=== PATIENT | female | born 1935 | race African-American/Black ===

== ENCOUNTER 2019-12-04 01:43 | Inpatient (IN) ==
[2019-12-04] MEDS ORDERED: ONDANSETRON INJ 2 MG/ML 2 ML VIAL IV PRN (09:51)
[2019-12-04] MEDS ORDERED: MAGNESIUM HYDROXIDE SUSP 30 ML UDC PO PRN (09:51)
[2019-12-04] MEDS ORDERED: POLYETHYLENE (MIRALAX) 17 GM PACK PO PRN (09:51)
[2019-12-04] MEDS ORDERED: ALUMINUM/MAGNESIUM SUSP 30 ML UDC PO PRN (09:51)
--- OUTSIDE RECORDS SUMMARY | 2019-12-04 10:00 | External Medical Summary | Continuity of Care Document ---
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 10) Allergies and Adverse Reactions Aspirin TABS (Allergy) Ibuprofen TABS (Allergy) Medications Aleve 220 MG Oral Capsule , M.D. Start: 2013 Refills: 0 Ferrous Sulfate 325 (65 Fe) MG Oral Tablet , M.D. Refills: 0 HYDROcodone-Acetaminophen 5-325 MG Oral Tablet; 1-2 tablets q4-6h , M.D. Refills: 0 Lisinopril 5 MG Oral Tablet , M.D. Refills: 0 CeleBREX 200 MG Oral Capsule; Take 1 capsule twice daily , M .D. Refills: 0 Ciprofloxacin HCl - 750 MG Oral Tablet; TAKE (1) TABLET TWIC E A DAY , M.D. Refills: 0 Enoxaparin Sodium 100 MG/ML Subcutaneous Solution; INJECT 1 ML , M.D. Refills: 0 Procedures History of Knee Replacement Status: Comp leted History of Total Abdominal Hysterectomy Status: Completed History of Radical Mastectomy Left Breast Status: Completed Immunizations Immunizations not documented Family History Mother Family history of Diabetes Mellitus (V18.0) Status: Active Brother Family history of Diabetes Mellitus (V18.0) Status: Active Family history of Diabetes Mellitus (V18.0) Status: Active Social History - Smoking Status Never smoked tobacco Plan of Treatment Planned Observations Planned Goals not documented Results No Known Results Results not documented
[2019-12-04] MEDS ORDERED: TRAMADOL HCL 50 MG TABLET PO PRN (10:45)
[2019-12-04 10:47] LABS: Basophils # (auto) 0.02 K/uL (0-0.2); Basophils % (auto) 0.1 %; Eosinophils # (auto) 0.05 K/uL (0-0.5); Eosinophils % (auto) 0.3 %; Hematocrit (blood only) 33.3 % (37-47); Hemoglobin 11.2 g/dL (12.0-16.0); Immature Granulocytes % (auto) 0.6 %; Lymphocytes # (auto) 1.29 K/uL (1.2-3.4); Lymphocytes % (auto) 7.9 %; Mean Corpuscular Hemoglobin 26.7 pg (25-34); Mean Corpuscular Hgb Conc 33.6 g/dL (32-36); Mean Corpuscular Volume 79.3 fL (80-100); Mean Platelet Volume 9.5 fL (7.4-10.4); Monocytes % (auto) 8.6 %; Neutrophils # (auto) 13.43 K/uL (1.4-6.5); Neutrophils % (auto) 82.5 %; Platelet Count 313 K/uL (130-400); RDW Coefficient of Variation 15.8 % (11.5-14.5); White Blood Count 16.29 K/uL (4.8-10.8)
[2019-12-04] MEDS ORDERED: CEFEPIME CONSULT ACTIVE PRN (10:51)
[2019-12-04] MEDS ORDERED: VANCOMYCIN CONSULT ACTIVE PRN (10:51)
--- NOTE | 2019-12-04 10:52 | History & Physical Report ---
Date of Service December 04, 2019 Assessment & Plan (1) Septic arthritis of knee, right: This is a 84-year-old female who has significant past medical history of hypertension, vitamin D deficiency, PAD, history of breast cancer status post left mastectomy 1996, history of DVT who presents as a direct admission from [facility] due to concern for right knee pain and septic arthritis. Pt presented to OSH with worsened pain, redness and warmth to R knee after sustaining fall [address] LE revealed large fluid and air anteriorly concerning for possible infectious process. Patient had significant leukocytosis and elevated CRP. Due to concern for septic arthritis she underwent arthrocentesis, specimen was thick, dempsey, and purulent. She received IV vancomycin and cefepime. Accepted by [facility] Dr. Antonio and transferred. Pt admitted to med/surg continue IV vancomycin and cefepime blood cultures drawn, arthrocentesis cultures pending at OSH ([facility]) consult orthopedics Dr. Antonio NWB To RLE ICE TID Tramadol 50mg q4h prn pain, APAP prn NPO after midnight covid 19 test ordered due to possible procedure EKG done - revealed NSR, LAFB, unchanged from prior ecg 10/2018. Follows [facility]. Underwent Lexiscan stress test 10/2018 negative for inducible ischemia. (2) HTN (hypertension): Blood pressure elevated She did not take her a.m. medications Resume hydralazine and diltiazem Monitor (3) Hypokalemia: pt on daily replacement 40meq KCL x 1 now repeat bmp in a.m. (4) Anemia: H&H 11.2 and 33.3 No signs or symptoms of bleeding Low MCV Obtain iron studies in a.m. (5) PVD (peripheral vascular disease): per pt hx of stent to RLE due to non healing wound on dorsal aspect R foot Dr. Jensen Unable to locate records, will need to obtain Recently had been on ASA, plavix and statin Now only on ASA (6) DVT prophylaxis: SCD/TEDS for now possible surgical procedure tomorrow, reassess daily to initiate chemical prophylaxis due to pt with hx of dvt Dispositon: admit to med surg Follow up: PCP Suzette Vinson PA-C upon discharge Pt was seen and examined in collaboration with Dr. Joelle, please see addendum Admission and Anticipated Discharge Date Admission Date: December 04, 2019 History of Present Illness Chief Complaint: R knee pain x 1 week. Primary Care Provider: Suzette Vinson PA-C This is a 84-year-old female who has significant past medical history of hypertension, vitamin D deficiency, PAD, history of breast cancer status post left mastectomy 1996, history of DVT who presents as a direct admission from [facility] due to concern for right knee pain and septic arthritis. Of significance patient has had 2 prior right total knee arthroplasty. Initially had surgery done by [facility] [place] [place], Dr. Méndez. She also required a revision and patellectomy 10/2018 at [facility]. Unfortunately patient sustained a fall approximately 1 week ago in which she fell on her, "bottom." She did not hit her knee directly but feels she may have twisted it somehow causing significant pain. Pain continued to persist and therefore she was seen and evaluated at ED in [place] on 11/27. She was started on Keflex 500 mg 4 times daily for concern for infection. Pain continued to persist and she continued to have worsening difficulty with ambulation. Due to worsening symptoms she returned to ED last evening. During further evaluation lab work revealed leukocytosis 15.5k, elevated CRP 20.4 and concern for right knee septic arthritis. She did undergo a CT of the right lower extremity which revealed a large fluid and air anteriorly concerning for possible infectious process. There is otherwise no bony abnormality and no hardware failure. She did undergo arthrocentesis of the right knee which was sent for culture. She also had blood cultures drawn. She was accepted by [facility] [place] Dr. Antonio for transfer. At rest currently she feels well. She currently denies any pain. Pain worsened significantly with any type of mobility. She denies any recent fever, chills, sweats, lightheadedness, dizziness, chest pain, shortness of breath, cough, nausea, vomiting, abdominal pain, change in her bowel or urinary habits. She denies any loss of taste or smell. No known contact with +covid 19 pt. Of significance patient states that she did have a wound to dorsal aspect of right foot. She required stent placement by Dr. eJnsen 05/2019. She was on ASA, Plavix and statin therapy and most recently was reduced to ASA alone. I do not have records indicating this in our system. Will have to obtain. Allergies Allergy/AdvReac Type Severity Reaction Status Date / Time aspirin AdvReac Intermediate previous Verified 10/28/13 09:39 ulcer ibuprofen AdvReac Intermediate hx of Verified 10/28/13 09:39 gastric ulcers Home Medications Home Medications Medication Instructions Recorded Confirmed Type aspirin 81 mg PO DAILY 12/04/19 12/04/19 History cephalexin [Keflex] 500 mg PO QID 12/04/19 12/04/19 History diltiazem HCl 120 mg PO DAILY 12/04/19 12/04/19 History ergocalciferol (vitamin D2) 1,250 mcg PO WK 12/04/19 12/04/19 History hydralazine 10 mg PO Q12H 12/04/19 12/04/19 History potassium chloride 20 meq PO DAILY 12/04/19 12/04/19 History Past Med/Surg History Medical History (Updated 12/04/19 @ 11:55 by Gracia Alcocer PA-C) History of breast cancer History of DVT of lower extremity HTN (hypertension) PVD (peripheral vascular disease) Surgical History (Updated 12/04/19 @ 11:56 by Gracia Alcocer PA-C) H/O right knee surgery hx of patellect[place] by Dr. Fredy Lagunas[place] [facility] [place] History of angioplasty of peripheral vessel reported per pt 05/[address] Jensen on ASA History of left mastectomy History of total left knee replacement (TKR) History of total right knee replacement (TKR) Status post appendectomy Family History (Updated 12/04/19 @ 11:39 by Gracia Alcocer PA-C) Brother Diabetes Denies family history of Coronary heart disease Cancer Stroke Social History (Updated 12/04/19 @ 11:39 by Gracia Alcocer PA-C) Smoking Status: Former smoker Second Hand Exposure: No; Do You Dip or Chew Tobacco: No; Tobacco Cessation Education Requested by Patient: No Hx Alcohol Use: No Hx Substance Use: No Preferred Language: Occitan Communication Ability: Effective Electronic Assembly Required: No Beliefs That Will Affect Care: Mandaen Mandaen Beliefs: jehovah witness Current Living Situation: Family Current Living Situation Comment: Lives with daughter Other Information That Helps Us Care for You: No Feels Safe at Home: Yes Safety Concerns: Feels Safe At This Time Review of Systems Review of Systems: All systems reviewed & are unremarkable except as noted in HPI & below Physical Exam Physical Exam: Constitutional: WD/WN, -Somali, female, vitals as above, NAD, sitting up in bed, pleasant, conversing easily Head: Normocephalic, Atraumatic Eyes: PERRL, conjunctivae normal, anicteric sclerae ENMT: external ear and nose normal, oropharynx normal Neck: trachea midline, no thyromegaly normal visual inspection Respiratory: normal respiratory effort, lungs clear to auscultation, no wheeze, rales, rhonchi. Normal insp/exp effort, no accessory muscle use Cardiovascular: RRR, no ectopy, no murmur, no edema, negative Homans. vessels: no JVD or carotid bruit Chest: normal inspection of chest Abdomen: normal bowel sounds, soft, nontender, no hepatosplenomegaly Musculoskeletal: no cyanosis or clubbing, right knee swelling/effusion, warmth, pain to palpation. Active range of motion to bilateral upper extremity and left lower extremity. Bilateral pedal pulses and PT pulses +2 and equal. She does have scar to dorsal aspect of right foot which is where a prior wound had healed. Left TKA scar noted. Skin: no rashes, warm and dry normal turgor Neurologic: PERRL, EOMI, accommodation nl, no face palsy, no dysarthria CN's II-XI intact bilaterally and moves all extremities Psychiatric: A+Ox3, euthymic affect Lymphatic: no cervical or axillary lymphadenopathy : deferred Results & Data Results & Data ([facility]) Vital Signs (Past 12 Hours) Vital Signs Temp Pulse Resp BP Pulse Ox 12/04/19 10:37 36.9 C 74 16 166/79 H 100 Laboratory Results Short CBC 12/04/19 Range/Units 10:23 WBC 16.29 H (4.8-10.8) K/uL Hgb 11.2 L (12.0-16.0) g/dL Hct 33.3 L (37-47) % Plt Count 313 (130-400) K/uL BMP 12/04/19 10:23 Sodium 136 Potassium 3.2 L Chloride 105 Carbon Dioxide 25 BUN 12 Creatinine 0.70 Glucose 114 H Calcium 8.7 Liver Function 08/15/20 Range/Units 10:23 Total Bilirubin 0.7 (0.2-1) mg/dl AST 27 (15-37) U/L ALT 36 (12-78) U/L Alkaline Phosphatase 112 (45-117) U/L Albumin 2.4 L (3.4-5.0) gm/dl Diagnostic Findings CXR: no acute process, cardiomegaly ECG Rate (beats per minute): 71 Rhythm: normal sinus Findings: + LAFB Comparison ECG Date: from (10/2018) Change: no significant change Code Status & VTE Plan Code Status Full Code VTE Prophylaxis Plan VTE Prophylaxis will be ordered: Yes Supervising Physician Co-Signing Physician Notes Pt was seen and examined. Agreed with Gracia HENRY exam, assessment and plan. 84-year-old female who has significant past medical history of hypertension, vitamin D deficiency, PAD, history of breast cancer status post left mastectomy 1996, history of DVT who presents as a direct admission from [facility] due to concern for right knee pain and septic arthritis. Pt said that about 1 week ago, she fell. She said that she was seen at [facility] and Keflex was given. Pt said that pain and swelling got worst and went to [facility] ER to get eval. CT was done showed large fluid and air anteriorly concerning for possible infectious process. Elevated leukocytosis, ESR and elevated CRP. Due to concern for septic arthritis she had arthrocentesis done at [facility]. Dr. Antonio accepted the patient and she was transferred to [facility]. Pt said that her pain is controlled. She said that the right knee is tender when she tries to move it or touch it. Her right knee is swollen. Will continue cefepime and Vanco for now. Blood cx pending. After pt was evaluated by ortho Dr. Antonio, he recommended to transfer to a tertiary care facility since pt will require extensive surgery. Family and patient preferred to transfer to [facility] because family did not feel pt was getting appropriate care during her last surgery in [place]. Called the transfer service at [facility] and discussed case with the hospitalist Dr. Soto and Orthopedic surgeon Dr. Stephen that accepted the patient. Since pt is stable with normal vitals afebrile, the transfer service said that the patient will need insurance auth before transferring. Unable to obtain prior insurance auth since her insurance closed for the weekend. I called the transfer service back to notify them that we cannot get prior insurance auth. The Transfer service said that if patient becomes unstable to call that they can arrange for the transfer. Transfer papers completed and family was notified. Nurse will call family when there is a bed available for transfer. MD Joelle
[2019-12-04 11:13] LABS: Albumin Level 2.4 gm/dl (3.4-5.0); BUN Creatinine Ratio 17.4 (10-20); Calcium 8.7 mg/dl (8.5-10.1); Creatinine Clr Calc Pharmacy 63.8 ml/min; Est GFR (African American) 91.6; INR 1.1 (0.9-1.1); Magnesium 1.9 mg/dl (1.8-2.4); Partial Thromboplastin Ratio 1.1; Partial Thromboplastin Time 30.7 Seconds (21.0-31.0); Potassium 3.2 mmol/L (3.5-5.1); Prothrombin Time 11.4 Seconds (9.0-12.0)
[2019-12-04 11:16] LABS: Albumin Globulin Ratio 0.5 (0.9-2); Bilirubin,Total 0.7 mg/dl (0.2-1); C Reactive Protein 18.4 mg/dl (0-0.29); Globulin 5.3 gm/dl (2.5-4.0); Total Protein 7.7 gm/dl (6.4-8.2)
--- NOTE | 2019-12-04 11:31 | XRay Report ---
XR chest 1V portable CLINICAL HISTORY: Admission chest x-ray COMPARISON STUDY: 08/04/2013 FINDINGS: The heart is enlarged. There is aortic tortuosity. There is no failure. There is no lobar c onsolidation. There are no pleural effusions.[ IMPRESSION: Mild cardiomegaly. No acute findings. ACT 112: Negative or not required by law. Electronically signed by: Casey Daniels M.D. 12/04/2019 11:29 AM
[2019-12-04] MEDS ORDERED: POTASSIUM CHLORIDE 20 MEQ TABCR PO STA (11:59)
--- NOTE | 2019-12-04 12:13 | Pharmacy Report ---
Pharmacy Abx Initial Consult - Date of Service December 04, 2019 - Pharmacy Dosing Scope Date of Consult: 12/04/19 Consultation requested by: Gracia Alcocer Pharmacy is consulted to initiate Vancomycin and Cefepime IV dosing therapy, order appropriate labs and adjust drug dose/frequency. - Subjective The patient is a 84 year old F admitted on 12/04/19 09:57. - Objective Height: 5 ft 5 in Weight: 86.4 kg Vital Signs (Past 12hrs): Vital Signs Temp Pulse Resp BP Pulse Ox 12/04/19 10:37 36.9 C 74 16 166/79 H 100 Lab Results (24hrs): Laboratory Tests (24 Hours) 12/04/19 12/04/19 12/04/19 10:23 10:23 10:23 WBC 16.29 H Neut # (Auto) 13.43 H ESR > 90 H Creatinine 0.70 Est Cr Clr Drug Dosing 63.8 C-Reactive Protein 18.40 H Micro Results: 12/04/19 10:49 Aerobic Blood Culture - Pending Blood Anaerobic Blood Culture - Pending 12/04/19 10:23 Aerobic Blood Culture - Pending Blood Anaerobic Blood Culture - Pending - Risk Factors for Resistance * Antimicrobial use within the last 90 days: Keflex 500mg qid starting 11/27 - Assessment & Plan Assessment 84 year old F admitted to [facility] from [facility] for septic arthritis of R knee. * Pt received vancomycin 1200mg in the ER at [facility] around 2am today, as well as cefepime 2gm around midnight. * Blood cultures pending * Renal function appears to be at baseline Plan Vancomycin and cefepime for treatment of septic arthritis Vancomycin IV * Patient meets criteria for vancomycin AUC dosing nomogram * AUC/KHURRAM is the preferred PK/PD target for vancomycin * Target AUC/KHURRAM = 400-600 * AUC guided dosing is effective and associated with decreased risk of nephrotoxicity * Estimated PK Parameters: Vd 0.6 L/kg, Dipak 0.057 hr-1, t1/2 12 hr * Loading dose: 1200 mg (14 mg/kg) in the ED at [facility] * Maintenance dose: 1250 mg IV (14.5 mg/kg) every 12 hours * Goal trough level for septic arthritis : 15 to 20 mcg/mL * Trough level ordered for 12/06/19 @1130 (prior to 5th maintenance dose) Cefepime * 2gm q8h for sepsis dosing Pharmacy will continue to follow and will adjust dose/frequency as necessary. Thank you.
[2019-12-04] MEDS: dilTIAZem HCL 120 MG CAPCR PO SCH (12:21)
[2019-12-04] MEDS: HydrALAZINE 10 MG TAB PO SCH ×2 (12:21→20:03)
[2019-12-04] MEDS: ASPIRIN 81 MG ECTAB PO SCH (12:21)
[2019-12-04] MEDS: VANCOMYCIN HCL 1,250 MG in SODIUM CHLORIDE 0.9% 250 ML IV SCH ×2 (12:27→23:51)
[2019-12-04] MEDS: CEFEPIME 2,000 MG in SYRINGE 7.5 ML IV SCH ×2 (12:27→20:03)
--- NOTE | 2019-12-04 19:41 | Consultation Report ---
DATE OF CONSULTATION: 12/04/2019 HISTORY OF PRESENT ILLNESS: This is an 84-year-old female seen at the request of Dr. Ricketts after she was admitted to the hospitalist service for septic right total knee arthroplasty. This patient is well known to the Orthopedic Service and she had a previous right total knee arthroplasty performed by Dr. Méndez in 06/2013. Subsequently had a wound dehiscence distally, had a second washout with polyethylene exchange and retained the components until later in 2013 in October at which point she had to have an excisional arthroplasty with implantation of cement spacers and placed on IV antibiotics. She then had a revision to a final total condylar arthroplasty with long stems proximal and distal from which she did fairly well for the next several years. Unfortunately, she had some right anterior knee pain. She was then seen by Jose Lagunas in [place] and she had a patellectomy of the right knee in 2018. She had some improvement in her symptoms with reduction in pain. She was doing fairly well; however, she had some sort of ischemic ulceration on her right foot. [facility] [place] and due to vascular insufficiency, had a stent performed by Dr. Jensen. The ulceration healed. However, within approximately a week prior to admission, the patient had a fall, fell on her buttocks, without any broken tissue, but then over the next several days, then developed redness, pain and swelling in her right knee. She was then seen in the Emergency Department, placed on Keflex and then had continued pain that was not resolving. She was then seen last evening in the Emergency Department at [facility]. She was evaluated, noted to have a large effusion of her right knee. She had a CT scan which demonstrated air fluid levels in the right knee, had an aspiration which appeared to have a dempsey yellow aspirate which was sent for culture, elevated white count at 15,000 and elevated sed rate over 130. The patient was then sent to [facility] for definitive management and care. PAST MEDICAL HISTORY: Hypertension, hypokalemia, anemia, peripheral vascular disease, degenerative arthritis, previous septic total knee arthroplasty on the right, vitamin D deficiency, history of breast cancer status post left mastectomy. PAST SURGICAL HISTORY: Multiple surgeries of the right knee as detailed above, left total knee arthroplasty, angioplasty peripheral vessels on 05/[address] Milan, appendectomy. ALLERGIES: TO ASPIRIN WITH STOMACH ULCER; IBUPROFEN, HISTORY OF GASTRIC ULCERS. MEDICATIONS: Please note the medical record. Medications, of note, Keflex 500 mg p.o. q.i.d. PAST SOCIAL HISTORY: She is a former smoker. She has not smoked in many years. Denies any current tobacco use. No alcohol, no drug use. She lives with her daughters. She is retired. She is Pentecostal. PHYSICAL EXAMINATION: Examination of the patient demonstrates an 84-year-old female lying supine in hospital room bed. She is alert and oriented x3. Speech clear and fluent. Affect is appropriate. She is a very good historian. Examination of the right knee demonstrates a large effusion. There is thinning of the anterior tissue with what appears to be subepidermal purulence. It is warm to touch. She has pain and limitation in range of motion of the right knee. Healed ulceration on the plantar aspect of right foot. She has 1/4 pulses, dorsalis pedis, posterior pulses on the right compared to the left. The CT scan reviewed demonstrating air fluid levels anteriorly. No fractures, long stem total knee arthroplasty with stems in the femur and in the tibia. Appears to be stable. Significant amount of effusion. LABORATORIES: Reviewed. IMPRESSION: Septic right total knee arthroplasty, multiple medical comorbidities. RECOMMENDATION: The patient will have to undergo significant surgery one way or another including but not limited to: excisional arthroplasty with antibiotic spacer, excisional arthroplasty with knee fusion, versus extensive irrigation and debridement with polyethylene exchange with chronic suppression antibiotics, versus above knee amputation. She is not a good candidate for excisional arthroplasty and reimplantation. We will discuss with my colleagues and make further recommendations. She will likely need to transfer to a tertiary care facility particularly if a knee fusion is required. In the meantime, n.p.o. after midnight for possible surgery in the a.m. Maintain partial weightbearing for transfer with use of a walker, limitation in weightbearing within the room only. Continue IV antibiotics. Thank you for the opportunity to consult in care of this patient. RUSSELL
--- NOTE | 2019-12-04 20:00 | Discharge Summary ---
Date of Service December 05, 2019 Admission HPI Per Admitting Provider This is a 84-year-old female who has significant past medical history of hypertension, vitamin D deficiency, PAD, history of breast cancer status post left mastectomy 1996, history of DVT who presents as a direct admission from [facility] due to concern for right knee pain and septic arthritis. Of significance patient has had 2 prior right total knee arthroplasty. Initially had surgery done by [facility], Dr. Méndez. She also required a revision and patellectomy 10/2018 at [facility]. Unfortunately patient sustained a fall approximately 1 week ago in which she fell on her, "bottom." She did not hit her knee directly but feels she may have twisted it somehow causing significant pain. Pain continued to persist and therefore she was seen and evaluated at ED in [place] on 11/27. She was started on Keflex 500 mg 4 times daily for concern for infection. Pain continued to persist and she continued to have worsening difficulty with ambulation. Due to worsening symptoms she returned to ED last evening. During further evaluation lab work revealed leukocytosis 15.5k, elevated CRP 20.4 and concern for right knee septic arthritis. She did undergo a CT of the right lower extremity which revealed a large fluid and air anteriorly concerning for possible infectious process. There is otherwise no bony abnormality and no hardware failure. She did undergo arthrocentesis of the right knee which was sent for culture. She also had blood cultures drawn. She was accepted by [facility] Dr. Antonio for transfer. At rest currently she feels well. She currently denies any pain. Pain worsened significantly with any type of mobility. She denies any recent fever, chills, sweats, lightheadedness, dizziness, chest pain, shortness of breath, cough, nausea, vomiting, abdominal pain, change in her bowel or urinary habits. She denies any loss of taste or smell. No known contact with +covid 19 pt. Of significance patient states that she did have a wound to dorsal aspect of right foot. She required stent placement by Dr. Jensen 05/2019. She was on ASA, Plavix and statin therapy and most recently was reduced to ASA alone. I do not have records indicating this in our system. Will have to obtain. Admission Exam Per Admitting Provider Constitutional: WD/WN, -Norwegian, female, vitals as above, NAD, sitting up in bed, pleasant, conversing easily Head: Normocephalic, Atraumatic Eyes: PERRL, conjunctivae normal, anicteric sclerae ENMT: external ear and nose normal, oropharynx normal Neck: trachea midline, no thyromegaly normal visual inspection Respiratory: normal respiratory effort, lungs clear to auscultation, no wheeze, rales, rhonchi. Normal insp/exp effort, no accessory muscle use Cardiovascular: RRR, no ectopy, no murmur, no edema, negative Homans. vessels: no JVD or carotid bruit Chest: normal inspection of chest Abdomen: normal bowel sounds, soft, nontender, no hepatosplenomegaly Musculoskeletal: no cyanosis or clubbing, right knee swelling/effusion, warmth, pain to palpation. Active range of motion to bilateral upper extremity and left lower extremity. Bilateral pedal pulses and PT pulses +2 and equal. She does have scar to dorsal aspect of right foot which is where a prior wound had healed. Left TKA scar noted. Skin: no rashes, warm and dry normal turgor Neurologic: PERRL, EOMI, accommodation nl, no face palsy, no dysarthria CN's II-XI intact bilaterally and moves all extremities Psychiatric: A+Ox3, euthymic affect Lymphatic: no cervical or axillary lymphadenopathy : deferred Principal Diagnosis Septic arthritis of right knee Hypertension Hypokalemia PVD Discharge Exam Constitutional: WD/WN, -Norwegian, female, vitals as above, NAD, sitting up in bed, pleasant, conversing easily Head: Normocephalic, Atraumatic Eyes: PERRL, conjunctivae normal, anicteric sclerae ENMT: external ear and nose normal, oropharynx normal Neck: trachea midline, no thyromegaly normal visual inspection Respiratory: normal respiratory effort, lungs clear to auscultation, no wheeze, rales, rhonchi. Normal insp/exp effort, no accessory muscle use Cardiovascular: RRR, no ectopy, no murmur, no edema, negative Homans. vessels: no JVD or carotid bruit Chest: normal inspection of chest Abdomen: normal bowel sounds, soft, nontender, no hepatosplenomegaly Musculoskeletal: no cyanosis or clubbing, right knee swelling/effusion, warmth, pain to palpation. Active range of motion to bilateral upper extremity and left lower extremity. Bilateral pedal pulses and PT pulses +2 and equal. She does have scar to dorsal aspect of right foot which is where a prior wound had healed. Left TKA scar noted. Skin: no rashes, warm and dry normal turgor Neurologic: PERRL, EOMI, accommodation nl, no face palsy, no dysarthria CN's II-XI intact bilaterally and moves all extremities Psychiatric: A+Ox3, euthymic affect Lymphatic: no cervical or axillary lymphadenopathy : deferred Discharge Data Allergies Allergy/AdvReac Type Severity Reaction Status Date / Time aspirin AdvReac Intermediate previous Verified 10/28/13 09:39 ulcer ibuprofen AdvReac Intermediate hx of Verified 10/28/13 09:39 gastric ulcers Consultations Orthopedics Consultation: DATE OF CONSULTATION: 12/04/2019 HISTORY OF PRESENT ILLNESS: This is an 84-year-old female seen at the request of Dr. Ricketts after she was admitted to the hospitalist service for septic right total knee arthroplasty. This patient is well known to the Orthopedic Service and she had a previous right total knee arthroplasty performed by Dr. Méndez in 06/2013. Subsequently had a wound dehiscence distally, had a second washout with polyethylene exchange and retained the components until later in 2013 in October at which point she had to have an excisional arthroplasty with implantation of cement spacers and placed on IV antibiotics. She then had a revision to a final total condylar arthroplasty with long stems proximal and distal from which she did fairly well for the next several years. Unfortunately, she had some right anterior knee pain. She was then seen by Jose Lagunas in [place] and she had a patellectomy of the right knee. She had some improvement in her symptoms with reduction in pain. She is doing fairly well; however, she had some sort of ischemic ulceration on her right foot. [facility] [place] and due to vascular insufficiency, had a stent performed by Dr. Milan. The ulceration healed. However, within approximately a week prior to admission, the patient had a fall, fell on her posterior, without any broken tissue, but then over the next several days, then developed redness, pain and swelling in her right knee. She was then seen in the Emergency Department, placed on Keflex and then had continued pain that was not resolving. She was then seen last evening in the Emergency Department at [facility]. She was evaluated, noted to have a large effusion of her right knee. She had a CT scan which demonstrated air fluid levels in the right knee, had an aspiration which appeared to have a dempsey yellow aspirate which was sent for culture, elevated white count at 15,000 and elevated sed rate over 130. The patient was then sent to [facility] for definitive management and care. PAST MEDICAL HISTORY: Hypertension, hypokalemia, anemia, peripheral vascular disease, degenerative arthritis, previous septic total knee arthroplasty on the right, vitamin D deficiency, history of breast cancer status post left mastectomy. PAST SURGICAL HISTORY: Multiple surgeries of the right knee as detailed above, left total knee arthroplasty, angioplasty peripheral vessels on 05/[address] Milan, appendectomy. ALLERGIES: TO ASPIRIN WITH STOMACH ULCER; IBUPROFEN, HISTORY OF GASTRIC ULCERS. MEDICATIONS: Please note the medical record. Medications, of note, Keflex 500 mg p.o. q.i.d. PAST SOCIAL HISTORY: She is a former smoker. She has not smoked in many years. Denies any current tobacco use. No alcohol, no drug use. She lives with her daughters. She is retired. She is [employer]ist. PHYSICAL EXAMINATION: Examination of the patient demonstrates an 84-year-old female lying supine in hospital room bed. She is alert and oriented x3. Speech clear and fluent. Affect is appropriate. She is a very good historian. Examination of the right knee demonstrates a large effusion. There is thinning of the anterior tissue with what appears to be subepidermal purulence. It is warm to touch. She has pain and limitation in range of motion of the right knee. Healed ulceration on the plantar aspect of right foot. She has 1/4 pulses, dorsalis pedis, posterior pulses on the right compared to the left. The CT scan reviewed demonstrating air fluid levels anteriorly. No fractures, long stem total knee arthroplasty with stems in the femur and in the tibia. Appears to be stable. Significant amount of effusion. LABORATORIES: Reviewed. IMPRESSION: Septic right total knee arthroplasty, multiple medical comorbidities. RECOMMENDATION: The patient will have to undergo likely excisional arthroplasty versus extensive irrigation and debridement with polyethylene exchange with chronic suppression antibiotics. She is not a good candidate for excisional arthroplasty. We will discuss with my colleague and make further recommendations. In the meantime, n.p.o. after midnight for likely surgery in the a.m. Maintain partial weightbearing for transfer with use of a walker, limitation in weightbearing within the room only. Continue IV antibiotics. Thank you for the opportunity to consult in care of this patient. Procedures Performed None Ordered Studies Short CBC 12/04/19 Range/Units 10:23 WBC 16.29 H (4.8-10.8) K/uL Hgb 11.2 L (12.0-16.0) g/dL Hct 33.3 L (37-47) % Plt Count 313 (130-400) K/uL BMP 12/04/19 10:23 Sodium 136 Potassium 3.2 L Chloride 105 Carbon Dioxide 25 BUN 12 Creatinine 0.70 Glucose 114 H Calcium 8.7 Liver Function 12/04/19 Range/Units 10:23 Total Bilirubin 0.7 (0.2-1) mg/dl AST 27 (15-37) U/L ALT 36 (12-78) U/L Alkaline Phosphatase 112 (45-117) U/L Albumin 2.4 L (3.4-5.0) gm/dl Procedures COVID -19 test Negative Laboratory Results - last 24 hr 12/04/19 12/04/19 12/04/19 10:23 10:23 10:23 WBC 16.29 H RBC 4.20 Hgb 11.2 L Hct 33.3 L MCV 79.3 L MCH 26.7 MCHC 33.6 RDW Std Deviation 46.0 RDW Coeff of Semaj 15.8 H Plt Count 313 MPV 9.5 Immature Gran % (Auto) 0.6 Neut % (Auto) 82.5 Lymph % (Auto) 7.9 [place] % (Auto) 8.6 Eos % (Auto) 0.3 Baso % (Auto) 0.1 Neut # (Auto) 13.43 H Lymph # (Auto) 1.29 [place] # (Auto) 1.40 H Eos # (Auto) 0.05 Baso # (Auto) 0.02 Immature Gran # (Auto) 0.10 H ESR > 90 H PT 11.4 INR 1.1 APTT 30.7 PTT Ratio 1.1 Sodium Potassium Chloride Carbon Dioxide Anion Gap BUN Creatinine Est Cr Clr Drug Dosing Est GFR ( Amer) Est GFR (Non-Af Amer) BUN/Creatinine Ratio Glucose Calcium Magnesium Total Bilirubin AST ALT Alkaline Phosphatase C-Reactive Protein Total Protein Albumin Globulin Albumin/Globulin Ratio COVID-19 Eval Order SARS-CoV-2, RNA, NAAT 12/04/19 12/04/19 12/04/19 10:23 14:05 14:05 WBC RBC Hgb Hct MCV MCH MCHC RDW Std Deviation RDW Coeff of Semaj Plt Count MPV Immature Gran % (Auto) Neut % (Auto) Lymph % (Auto) [place] % (Auto) Eos % (Auto) Baso % (Auto) Neut # (Auto) Lymph # (Auto) [place] # (Auto) Eos # (Auto) Baso # (Auto) Immature Gran # (Auto) ESR PT INR APTT PTT Ratio Sodium 136 Potassium 3.2 L Chloride 105 Carbon Dioxide 25 Anion Gap 6.0 BUN 12 Creatinine 0.70 Est Cr Clr Drug Dosing 63.8 Est GFR ( Amer) 91.6 Est GFR (Non-Af Amer) 79.0 BUN/Creatinine Ratio 17.4 Glucose 114 H Calcium 8.7 Magnesium 1.9 Total Bilirubin 0.7 AST 27 ALT 36 Alkaline Phosphatase 112 C-Reactive Protein 18.40 H Total Protein 7.7 Albumin 2.4 L Globulin 5.3 H Albumin/Globulin Ratio 0.5 L COVID-19 Eval [facility] SARS-CoV-2, RNA, NAAT NEGATIVE CXR: IMPRESSION: Mild cardiomegaly. No acute findings. ECG Rate (beats per minute): 71 Rhythm: normal sinus Findings: + LAFB Comparison ECG Date: from (10/2018) Change: no significant change Hospital Course (1) Septic arthritis of knee, right: This is a 84-year-old female who has significant past medical history of hypertension, vitamin D deficiency, PAD, history of breast cancer status post left mastectomy 1996, history of DVT who presents as a direct admission from [facility] due to concern for right knee pain and septic arthritis. Pt presented to OSH with worsened pain, redness and warmth to R knee after sustaining fall [address] LE revealed large fluid and air anteriorly concerning for possible infectious process. Patient had significant leukocytosis and elevated CRP. Due to concern for septic arthritis she underwent arthrocentesis, specimen was thick, dempsey, and purulent. She received IV vancomycin and cefepime. Accepted by [facility] Dr. Antonio and transferred. Antibiotics were continue with IV vancomycin and cefepime. Lab abnormalities notable for leukocytosis 16.29k, H&H 11.2 and 33.3, ESR greater than 90, CRP 18.4. She was seen and evaluated by orthopedics who is recommending transfer to tertiary facility secondary to need for excisional arthroplasty persistence of irrigation and debridement with exchange and chronic suppressive antibiotics. Case was discussed with orthopedics. Family requested second opinion which was discussed with not any orthopedics who also agreed on need to transfer. She did undergo COVID-19 testing which was negative. (2) HTN (hypertension): Blood pressure elevated She did not take her a.m. medications Resume hydralazine and diltiazem Monitor (3) Hypokalemia: pt on daily replacement 40meq KCL x 1 now repeat bmp in a.m. (4) Anemia: H&H 11.2 and 33.3 No signs or symptoms of bleeding Low MCV Obtain iron studies in a.m. (5) PVD (peripheral vascular disease): per pt hx of stent to RLE due to non healing wound on dorsal aspect R foot 05/2019 Dr. Jensen Unable to locate records, will need to obtain Recently had been on ASA, plavix and statin Now only on ASA Total Time Total Time Spent Total Time Spent (In Minutes): 45 minutes Total Time Includes: Examination of the Patient, Discharge Planning and Communication With Other Providers Discharge Plan Discharge Items Patient Disposition: Transfer Acute Care Hospital Reason For Visit: PROSTHETIC JOINT INFECTION Discharge Diagnosis: Septic arthritis of knee, right HTN (hypertension) Hypokalemia Anemia PVD (peripheral vascular disease): Activity: As commented below Non-emergency contact: Primary Care Provider and Surgeon Call non-emergency contact if: you have any medication questions and your temperature is above 101 Follow-up/Referrals: PCP,NO [Primary Care Provider] - Diet: Nothing by Mouth Addtl Attending Provider Instructions: Transfer to [place] Accepting hospitalist physician Dr. BRICENO Case discussed with [place] [facility] Dr. Bryant who agreed to see the patient on Consult Continue IV antibiotic with Vancomycin and Cefepime Follow up on blood culture and joint fluid culture Continue Pain control Maintain partial weightbearing for transfer with use of a walker, limitation in weightbearing within the room only Will make NPO after midnight Pending Studies at Discharge: Yes Studies:: Blood culture, arthrocentesis cultures pending Stand-Alone Forms: My [facility] Skilled Items Patient informed of condition?: Yes DNR: No Discharge Level of Care: Other Communicable Disease: No Discharge Prognosis: Stable Lines: Peripheral IV Urinary Catheter: No Medications and DC Order Prescriptions: Continued hydralazine 10 mg tablet 10 mg PO Q12H RF: 0 aspirin 81 mg tablet,delayed release (DR/EC) 81 mg PO DAILY RF: 0 potassium chloride 20 mEq tablet,ER particles/crystals 20 meq PO DAILY RF: 0 diltiazem HCl 120 mg capsule,extended release 24hr 120 mg PO DAILY RF: 0 ergocalciferol (vitamin D2) 1,250 mcg (50,000 unit) capsule 1,250 mcg PO WK RF: 0 Discontinued cephalexin [Keflex] 500 mg Capsule 500 mg PO QID RF: 0 Admission Data Admit Date/Time: 12/04/19 09:57 Attending Provider: Danilo Lai Admit Provider: Deedee Gonzales Primary Care Provider: PCP,NO Other Providers: Cody Antonio ; Deedee Gonzales Supervising Physician Co-Signing Physician Notes Pt was seen and examined. Agreed with Gracia HENRY exam, assessment and plan. 84-year-old female who has significant past medical history of hypertension, vit soto D deficiency, PAD, history of breast cancer status post left mastectomy 1996, history of DVT who presents as a direct admission from [facility] due to concern for right knee pain and septic arthritis. Pt said that about 1 week ago, she fell. She said that she was seen at [facility] and Keflex was given. Pt said that pain and swelling got worst and went to [facility] ER to get eval. CT was done showed large fluid and air anteriorly concerning for possible infectious process. Elevated leukocytosis, ESR and elevated CRP. Due to concern for septic arthritis she had arthrocentesis done at [facility]. Dr. Antonio accepted the patient and she was transferred to [facility]. Pt said that her pain is controlled. She said that the right knee is tender when she tries to move it or touch it. Her right knee is swollen. Will continue cefepime and Vanco for now. Blood cx pending. After pt was evaluated by ortho Dr. Antonio, he recommended to transfer to a tertiary care facility since pt will require extensive surgery. Family and patient preferred to transfer to [place] because family did not feel pt was getting appropriate care during her last surgery in [place]. Called the transfer service at [place] and discussed case with the hospitalist Dr. Soto and Orthopedic surgeon Dr. Stephen that accepted the patient. Since pt is stable with normal vitals afebrile, the transfer service said that the patient will need insurance auth before transferring. Unable to obtain prior insurance auth since her insurance closed for the weekend. I called the transfer service back to notify them that we cannot get prior insurance auth. The Transfer service said that if patient becomes unstable to call that they can arrange for the transfer. Transfer papers completed and family was notified. Nurse will call family when there is a bed available for transfer. Addendum 12/04 Pt was seen and examined. Lying in bed with son at bedside. Pt said that he is having more pain in his right knee with drainage pus. Denies any fever, chest pain, palpitation dizziness SOB. Right knee is swollen, tender to touch, drainage pus. case discussed with Dr. Antonio today since the right knee is g etting worst. Dr Antonio recommended to transfer to [place] for for washing surgical procedure. I spoke to Dr. Stephen about the transgfer again and the need for the surgical washing procedure (I&D) since the right knee is getting worst that can lead to sepsis and . Dr. Stephen recommended the procedure to be done at [facility] since [place] does not have any bed available if pt needs the procedure; then patient can be transferred for additional procedure at [place] once a bed available. We tried to connect Dr. Atnonio on the call that both ortho surgeon could discuss the case, unfortunately the call went to his voicemail. I spoke to Dr. Antonio after taking to the Ortho at [place] about no bed available. Dr. Antonio said that pt will need additional procedure after the I&D (washing) and best to get the procedure done at a tertiary care. I went to speak to the patient and her son was at bedside about to transfer to another facility since [place] had no bed available. Patient and son agreed to try to transfer to [facility]. Case discussed with both [place] orthopedic Dr. Bryant and Hospitalist physician Dr. BRICENO that agreed to accept the patient. Dr. Bryant will be happy to be in consult to schedule for the surgical procedure tomorrow. Will continue IV Vanco and Cefepime for now. Will make NPO after midnight. Pt and son were notified. MD Joelle
[2019-12-04] MEDS ORDERED: ENOXAPARIN INJ 40 MG/0.4 ML SYR SQ SCH (21:00)
[2019-12-04] MEDS ORDERED: SODIUM CHLORIDE 0.9% 500 ML IV ONE (23:30)
[2019-12-05] MEDS: ACETAMINOPHEN 325 MG TAB PO PRN ×3 (02:04→16:11)
[2019-12-05] MEDS: CEFEPIME 2,000 MG in SYRINGE 7.5 ML IV SCH ×2 (04:42→12:15)
[2019-12-05 06:05] LABS: Basophils # (auto) 0.01 K/uL (0-0.2); Basophils % (auto) 0.1 %; Eosinophils # (auto) 0.12 K/uL (0-0.5); Hematocrit (blood only) 34.3 % (37-47); Hemoglobin 11.4 g/dL (12.0-16.0); Immature Granulocytes # (auto) 0.07 K/uL (0.00-0.02); Immature Granulocytes % (auto) 0.6 %; Lymphocytes # (auto) 1.23 K/uL (1.2-3.4); Lymphocytes % (auto) 10.4 %; Mean Corpuscular Hemoglobin 25.9 pg (25-34); Mean Corpuscular Hgb Conc 33.2 g/dL (32-36); Mean Corpuscular Volume 77.8 fL (80-100); Mean Platelet Volume 9.4 fL (7.4-10.4); Monocytes # (auto) 0.82 K/uL (0.11-0.59); Monocytes % (auto) 6.9 %; Neutrophils # (auto) 9.57 K/uL (1.4-6.5); Platelet Count 342 K/uL (130-400); RDW Coefficient of Variation 15.7 % (11.5-14.5); RDW Standard Deviation 45.3 fL (36.4-46.3); Red Blood Count 4.41 M/uL (4.2-5.4); White Blood Count 11.82 K/uL (4.8-10.8)
[2019-12-05 06:37] LABS: BUN Creatinine Ratio 18.3 (10-20); Calcium 8.4 mg/dl (8.5-10.1); Creatinine Clr Calc Pharmacy 65.7 ml/min; Est GFR (African American) 92.4; Est GFR (Non-African American) 79.8; Ferritin 568.2 ng/ml (8-388); Potassium 3.8 mmol/L (3.5-5.1)
[2019-12-05] MEDS: dilTIAZem HCL 120 MG CAPCR PO SCH (08:57)
[2019-12-05] MEDS: ASPIRIN 81 MG ECTAB PO SCH (08:57)
[2019-12-05] MEDS: HydrALAZINE 10 MG TAB PO SCH (08:57)
[2019-12-05] MEDS ORDERED: dilTIAZem HCL 120 MG CAPCR PO SCH (09:00)
[2019-12-05] MEDS ORDERED: POTASSIUM CHLORIDE 20 MEQ TABCR PO SCH (09:00)
[2019-12-05] MEDS: VANCOMYCIN HCL 1,250 MG in SODIUM CHLORIDE 0.9% 250 ML IV SCH (12:15)
--- NOTE | 2019-12-05 22:45 | Electrocardiogram Report ---
Test Reason : Blood Pressure : / mmHG Vent. Rate : 079 BPM Atrial Rate : 079 BPM P-R Int : 162 ms QRS Dur : 114 ms QT Int : 382 ms P-R-T Axes : 015 -51 046 degrees QTc Int : 438 ms Normal sinus rhythm Left anterior fascicular block Voltage criteria for left ventricular hypertrophy Abnormal ECG When compared with ECG of 05-AUG-2013 07:00, QRS duration has increased Confirmed by King De Los Santos ([id number]) on 12/05/2019 10:45:14 PM Referred By: Deedee Gonzales Confirmed By:King De Los Santos
[2019-12-06 05:48] LABS: Estimated Average Glucose 126 mg/dl
[2019-12-06] MEDS ORDERED: VANCOMYCIN TROUGH ONE (11:30)
== END 2019-12-05 16:32 | disposition short-term general hospital (02) | DRG 550 ==
LOC: 3E 09:57 → SUATTDRO 09:57